=== PATIENT | female | born 1975 | race Caucasian/White ===

== ENCOUNTER 2023-12-05 13:17 | Outpatient (CLI) | payer BC | END 2023-12-05 23:59 | disposition critical access hospital (66) | LOC: EMS 13:17 | DX: S01.21XA Laceration without foreign body of nose, initial encounter (principal); K08.419 Partial loss of teeth due to trauma, unspecified class; R40.4 Transient alteration of awareness; V18.4XXA Pedal cycle driver injured in noncollision transport accident in traffic accident, initial encounter; Y93.55 Activity, bike riding; Y92.488 Other paved roadways as the place of occurrence of the external cause | CPT/HCPCS: A0425; A0427 ==

== ENCOUNTER 2023-12-05 13:33 | Emergency (ER) | payer BC ==
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
[2023-12-05 13:51] LABS: BASOPHILS % (AUTO) 0.3 %; EOSINOPHILS # (AUTO) 0.1 10^3/uL (0.0-0.7); EOSINOPHILS % (AUTO) 0.4 %; HCT - HEMATOCRIT 38.1 % (37.0-47.0); HGB - HEMOGLOBIN 11.5 g/dL (12.0-16.0); LYMPHOCYTES % (AUTO) 21.8 %; MEAN CORPUSCULAR HGB CONC 30.2 g/dL (32.0-36.0); MEAN CORPUSCULAR VOLUME 79.5 fL (81.0-99.0); MEAN PLATELET VOLUME 9.6 fL (7.9-10.8); MONOCYTES # (AUTO) 0.8 10^3/uL (0.0-1.0); MONOCYTES % (AUTO) 5.5 %; NEUTROPHILS # (AUTO) 9.9 10^3/uL (1.5-6.6); NEUTROPHILS % (AUTO) 71.4 %; PLT - PLATELET COUNT 333 10^3/uL (130-450); RED BLOOD COUNT 4.79 10^6/uL (4.20-5.40); RED CELL DISTRIBUTION WIDTH 16.6 % (12.0-15.0); WHITE BLOOD COUNT 13.9 x10^3/uL (4.8-10.8)
[2023-12-05 13:57] LABS: INR 1.2 (0.8-1.2); PT - PROTHROMBIN TIME 12.6 secs (9.9-12.6)
[2023-12-05 14:10] LABS: ALBUMIN/GLOBULIN RATIO 1.3 (1.0-2.2); BILIRUBIN,TOTAL 0.5 mg/dL (0.2-1.0); CALCIUM 9.4 mg/dL (8.5-10.3); CREATININE 0.8 mg/dL (0.6-1.3); POTASSIUM 4.4 mmol/L (3.5-4.5); TOTAL PROTEIN 7.1 g/dL (6.4-8.9)
--- NOTE | 2023-12-05 14:24 | CT Report ---
PROCEDURE: Head WO INDICATIONS: head/face injury, suspect complex lefort TECHNIQUE: Noncontrast 4.5 mm thick angled axial sections acquired from the foramen magnum to the vertex. For r adiation dose reduction, the following was used: automated exposure control, adjustment of mA and/or kV according to patient size. COMPARISON: CT maxillofacial areas from the same date. FINDINGS: Image quality: Excellent. CSF spaces: Basal cisterns are patent. No extra-axial fluid collections. Ventricles are normal in size and shape. Brain: No midline shift. No intracranial masses or hemorrhage. Gonzalez-white matter interface is norm al. Skull and face: Calvarium is intact, without suspicious lesions. Sinuses: Visualized sinuses and mastoids are clear. IMPRESSION: 1.No acute intracranial pathology. 2. Please refer to a separate report for findings regarding the maxillofacial bones. Reviewed by: Suraj Reed MD on 12/05/2023 2:23 PM PDT Approved by: Suraj Reed MD on 12/05/2023 2:23 PM PDT Station ID: [id number]
--- NOTE | 2023-12-05 14:33 | CT Report ---
PROCEDURE: Maxillofacial WO INDICATIONS: head/face injury, suspect complex lefort TECHNIQUE: Noncontrast 1.5 mm thick axial images acquired from the mandible through the frontal sinuses, with co mitch and sagittal reformatting. For radiation dose reduction, the following was used: automated ex posure control, adjustment of mA and/or kV according to patient size. COMPARISON: CT head and CT cervical spine from the same date. FINDINGS: Image quality: Excellent. Bones and teeth: Orbital mukherjee are intact. There is a comminuted nasal bone fracture which is likely acute, with associated tissue in the nasal fossa. There is an associated anterior nasal septal fract ure. There is a fracture line involving the lateral wall of the right maxillary sinus which extends m inimally to involve the anterior aspect of the anterior wall. This is of uncertain chronicity, and is not associated with fluid in the maxillary sinus. There is bilateral maxillary sinus mucosal thicken ing, right greater than left. There is an anterior inferior nasal spine fracture. There is an anterio r maxillary ridge fracture with Pterygoid plates are intact. Visualized portions of the skull base a nd auditory canals are intact. Sinuses: Paranasal sinuses are aerated, without fluid levels, mucosal thickening, or mucoceles. Mas toid air cells are aerated. Soft tissues: No edema, masses, or fluid collections. No enlarged lymph nodes. No soft tissue lace rations or debris. Vascular: Visualized vascular structures appear normal in the absence of contrast. Bony vascular fo ramina and canals are intact. IMPRESSION: Numerous fractures are as follows: 1. Nasal bone fracture. 2. Nasal septal fracture. 3. Anterior-inferior nasal spine fracture. 4. Anterior maxillary ridge with multiple associated dislodged teeth 5. A lateral right orbital wall fracture may be acute or chronic. It extends to the anterior aspect o f the anterior wall of the maxillary sinus. 6. No orbital fractures. Reviewed by: Suraj Reed MD on 12/05/2023 2:32 PM PDT Approved by: Suraj Reed MD on 12/05/2023 2:32 PM PDT Station ID: [id number]
--- NOTE | 2023-12-05 14:39 | CT Report ---
PROCEDURE: Cervical Spine WO INDICATIONS: head/face injury, suspect complex lefort TECHNIQUE: Noncontrast 3 mm thick sections acquired from the skull base to the T4 level. Sagittal and coronal r eformats were then constructed. For radiation dose reduction, the following was used: automated exp osure control, adjustment of mA and/or kV according to patient size. COMPARISON: None. FINDINGS: Image quality: Excellent. Bones: No fractures or dislocations. Visualized superior ribs are intact. Cervical spondylosis. Fi ndings include severe bilateral bony foraminal narrowing at C6-C7. There may be canal stenosis at C5- C6. Soft tissues: Prevertebral soft tissues are normal in thickness. No paravertebral hematomas. No ap ical pneumothoraces. IMPRESSION: No acute cervical fracture or dislocation Cervical spondylosis. Reviewed by: Suraj Reed MD on 12/05/2023 2:38 PM PDT Approved by: Suraj Reed MD on 12/05/2023 2:38 PM PDT Station ID: [id number]
[2023-12-05] MEDS: AMPICILLIN/SULBACTAM 3 GM in SODIUM CHLORIDE 0.9% MINIBAG 100 ML IV STA (14:42)
--- NOTE | 2023-12-05 15:12 | XRAY Report ---
PROCEDURE: Hand 3+V RT INDICATIONS: hand inj TECHNIQUE: 3 views of the hand(s) acquired. COMPARISON: None. FINDINGS: Bones: No fractures or dislocations. No suspicious bony lesions. Soft tissues: No suspicious soft tissue calcifications or masses. IMPRESSION: No visualized acute fracture or dislocation. However, occult injury cannot be excluded. Recommend alex rt interval imaging follow-up in 7-10 days as clinically indicated for additional evaluation. Reviewed by: Kinza Portillo MD on 12/05/2023 3:10 PM PDT Approved by: Kinza Portillo MD on 12/05/2023 3:10 PM PDT Station ID: [id number]
[2023-12-05 16:05] VITALS: O2SAT 98
[2023-12-05 17:08] VITALS: BP 128/80
[2023-12-05] MEDS: KETOROLAC 15 MG/ML VIAL IVP STA (17:35)
[2023-12-05] MEDS: GABAPENTIN 100 MG CAPSULE PO STA (19:34)
== END 2023-12-05 19:35 | disposition short-term general hospital (02) ==
LOC: ED 13:33
DX: S60.511A Abrasion of right hand, initial encounter (principal); S01.21XA Laceration without foreign body of nose, initial encounter; K08.119 Complete loss of teeth due to trauma, unspecified class; S06.0X1A Concussion with loss of consciousness of 30 minutes or less, initial encounter; S02.2XXA Fracture of nasal bones, initial encounter for closed fracture; S02.411A LeFort I fracture, initial encounter for closed fracture; V18.0XXA Pedal cycle driver injured in noncollision transport accident in nontraffic accident, initial encounter; Y93.55 Activity, bike riding; Y92.828 Other wilderness area as the place of occurrence of the external cause
CPT/HCPCS: 12011; 36415; 70450; 70486; 72125; 73130; 80053; 85025; 85610; 96365; 96375; 99285; A9270